=== PATIENT | male | born 1970 | race African-American/Black ===

== ENCOUNTER 2019-01-23 12:38 | Emergency (ER) | payer SELFPAY ==
[~2019-01-23] VITALS: Ht 177.8 cm; Wt 74.8 kg
[2019-01-23 13:13] VITALS: BP 125/74
--- NOTE | 2019-01-23 13:14 | NUR ---
ED Nurse Note: Pt came in from home due to L sided rib pain, stated friend was hugging and squeezing him last night. Now complaining of pain and tenderness, gets worse with movement, 10/10 bulmaro. Aox4, VSS. Will cont to monitor.
--- NOTE | 2019-01-23 13:15 | Emergency Room Report ---
History of Present Illness General Chief Complaint: Pain Source: Patient Present Illness HPI 49-year-old male patient presents ER complaining of left-sided rib pain since last night. Reports that he was out with friends and when they were saying goodbye, one of them hugged him very tightly to the point that he felt sharp pain on his left rib side, denies feeling crack in ribs. Reports noticing increased pain when he laid down on his left side during sleep. Reports pain with deep inspiration. Denies shortness of breath. Reports has used lidocaine patch without relief of symptoms. Declined need for pain medication currently in the ER. Denies fever, chest pain, shortness of breath. Allergies: Coded Allergies: CIPROFLOXACIN (Verified Allergy, Unknown, 01/23/19) Patient History Past Medical History: see triage record Reviewed Nursing Documentation: PMH: Agreed; PSxH: Agreed Nursing Documentation-PMH Past Medical History: No History, Except For Review of Systems All Other Systems: negative except mentioned in HPI Physical Exam Vital Signs Date Time Temp Pulse Resp B/P (MAP) Pulse Ox O2 Delivery O2 Flow Rate FiO2 01/23/19 12:44 98.6 75 19 121/68 98 Room Air Sp02 EP Interpretation: reviewed, normal General Appearance: well appearing, no apparent distress, alert, GCS 15, non- toxic Head: normocephalic, atraumatic Eyes: bilateral eye normal inspection, bilateral eye PERRL ENT: hearing grossly normal, normal pharynx, no angioedema, normal voice, uvula midline, moist mucus membranes Neck: full range of motion Respiratory: lungs clear, normal breath sounds, no rhonchi, no respiratory distress, no accessory muscle use, no wheezing, speaking full sentences, other - No flail chest, chest symmetrical Cardiovascular #1: regular rate, rhythm, no edema Musculoskeletal: back normal, digits/nails normal, gait/station normal, normal range of motion, tender - Left lateral ribs, no deformity Psychiatric: mood/affect normal Skin: no rash Medical Decision Making PA Attestation Dr. Benton is my supervising Physician whom patient management has been discussed with. Diagnostic Impression: Primary Impression: Contusion of rib on left side ER Course Pt. presents to the ED c/o left rib pain. Differentials include but not limited to fracture, contusion, pneumothorax. Vital signs: are WNL, pt. is afebrile ER COURSE: Patient declined pain medication. An X-ray of the left ribs and chest was ordered, results show no acute fracture , scoliosis noted, no pneumothorax per the official [facility] reading. Discuss results with the patient. Provided patient with copy of results. Instructed patient to followup with PCP and discuss results of report with patient, discuss need for further treatment and referral. Informed patient likely rib contusion. Patient instructed on rest, ice,and heat. Patient instructed to avoid strenuous exercise that may exacerbate symptoms. Followup with primary care provider for medical clearance to return to activities. Discuss referral to ortho/pain management/PT as needed. Discuss further imaging with MRI/CT as needed. Patient declined need for Rx for pain medication. ER precautions given. DISCHARGE: At this time pt is stable for d/c to home. Patient is resting comfortably, in no acute distress, nontoxic appearing, talking without difficulty, smiling and giving high-fives. Patient to take medications as instructed Will provide with patient care instructions and any necessary prescriptions. Care plan and follow-up instructions provided. Patient instructed to follow-up with primary care provider in 3 - 5 days. Patient questions asked and answered. Patient reports understanding and agreement to treatment plan. ER precautions given. Patient instructed to return to ER immediately for any new or worsening of symptoms including but not limited to increasing SOB, persistent fever, chest pain, intractable vomiting. - Please note that this Emergency Department Report was dictated using [employer] organ technician technology software, occasionally this can lead to erroneous entry secondary to interpretation by the dictation equipment. Other X-Ray Diagnostic Results Other X-Ray Diagnostic Results : X-Ray ordered: Left rib # of Views/Limited Vs Complete: Complete Indication: Pain EP Interpretation: Yes PA Xray: Interpretation reviewed, by supervising MD, and agrees with findings. Interpretation: no dislocation, no soft tissue swelling, no fractures, other - Scoliosis noted Impression: No acute disease MEGAN Scribe Text Nikolai Upton PA-C Last Vital Signs Date Time Temp Pulse Resp B/P (MAP) Pulse Ox O2 Delivery O2 Flow Rate FiO2 01/23/19 12:44 98.6 75 19 121/68 98 Room Air Status: improved Disposition: HOME, SELF-CARE Condition: Stable Patient Instructions: Rib Contusion Additional Instructions: Patient instructed to follow up with primary care provider 3-5 and discuss further referral and imaging at that time. Patient instructed on rest, ice and heat. Patient questions asked and answered. ER precautions given, patient instructed to return to ER immediately for any new or worsening of symptoms. [facility] [address] [facility] [facility], [id number] [email or web address] Gerald Upton Jan 23, 2019 13:15
--- NOTE | 2019-01-23 13:26 | NUR ---
ED Nurse Note: Dr Benton cancelled CT procedure.
[2019-01-23 14:08] VITALS: BP 131/80
--- NOTE | 2019-01-23 14:08 | NUR ---
ED Nurse Note: Pt is cleared by ER MD for discharge. DC instructions/prescription was given and explained to pt and verbalized understanding of teachings. All medical devices such as ID band removed. Pt is AAO x4, ambulatory and left with all personal belongings.
--- NOTE | 2019-01-24 09:50 | Diagnostic Imaging Report ---
Indication: Chest pain. Rib pain Technique: One view of the chest, 2 views of the left ribs Comparison: none Findings: The lungs and pleural spaces are clear. Heart size is normal. There is mild thoracolumbar scoliotic deformity. No acute fractures. No pneumothorax Impression: No acute process Scoliosis This agrees with the preliminary interpretation provided overnight by [facility].
== END 2019-01-23 14:08 | disposition home or self-care (01) ==
LOC: EMR 13:15
DX: S20.212A Contusion of left front wall of thorax, initial encounter (principal); X58.XXXA Exposure to other specified factors, initial encounter; Y92.89 Other specified places as the place of occurrence of the external cause; M41.9 Scoliosis, unspecified
CPT/HCPCS: 99283